=== PATIENT | male | born 1960 | race Caucasian/White ===

== ENCOUNTER 2016-10-21 19:26 | Emergency (ER) | payer BC, OTHER ==
[2016-10-21 20:04] VITALS: BP 126/66
[2016-10-21] MEDS ORDERED: guaiFENesin/CODIEN 100MG-10MG* 5 ML UDC PO ONE (21:09)
[2016-10-21] MEDS ORDERED: Albuterol 2.5 MG/3 ML NEB.SOL* (0.083%) INH ONE (21:12)
[2016-10-21] MEDS ORDERED: guaiFENesin/CODIEN 100MG-10MG* 5 ML UDC ONE (21:28)
--- NOTE | 2016-10-21 22:31 | UC ---
FLU HPI - HPI Summary HPI Summary: 3 DAYS AYALA, FEVER, COUGH ST. GETTING WORSE. COUGH PRODUCTIVE OF YELLOW SPUTUM, PAINFUL AND INTERFERRING WITH SLEEP. AYALA 5/10. NO PHOTOPHOBIA, CONFUSION, NECK STIFFNESS, VOMITING. POS DECREASED APPETITE. - History of Current Complaint Chief Complaint: UCGeneralIllness Stated Complaint: FEVER,HEADACHE,COUGH Time Seen by Provider: 10/21/16 20:18 Hx Obtained From: Patient, Family/President [place] Onset/Duration: Sudden Onset, Lasting Days - 3, Still Present, Worse Since - TODAY Severity Currently: Moderate Severity Initially: Moderate Pain Intensity: 5 Pain Scale Used: 0-10 Numeric Associated Signs & Symptoms: Positive: Fever, T Max - 102, F/C, Myalgia, Cough, Sore Throat, Headache. Negative: Nasal Congestion, Vomiting, Diarrhea Related Hx: Possible Flu/Infectious Exposure - Risk Factors Influenza Risk Factors: Negative - Allergy/Home Medications Allergies/Adverse Reactions: Allergies Allergy/AdvReac Type Severity Reaction Status Date / Time No Known Allergies Allergy Verified 10/21/16 20:04 PMH/Surg Hx/FS Hx/Imm Hx Previously Healthy: Yes Endocrine History Of: Denies: Diabetes Cardiovascular History Of: Denies: Cardiac Disorders, Hypertension, Pacemaker/ICD Respiratory History Of: Denies: Asthma - Surgical History Surgical History: None - Family History Known Family History: Negative: Cardiac Disease, Hypertension, Diabetes - Social History Occupation: Employed Full-time Lives: With Family Alcohol Use: Rare Substance Use Type: None Smoking Status (MU): Former Smoker Length of Time of Smoking/Using Tobacco: 15 YRS Have You Smoked in the Last Year: No When Did the Patient Quit Smoking/Using Tobacco: 2000 - Immunization History Most Recent Influenza Vaccination: [id number] Most Recent Tetanus Shot: 03/17/2012 Review of Systems Constitutional: Fever, Chills Skin: Negative Eyes: Negative ENT: Sore Throat, Nasal Discharge Respiratory: Cough Cardiovascular: Chest Pain - PLEURITIC Gastrointestinal: Negative Genitourinary: Negative Motor: Negative Neurovascular: Negative Musculoskeletal: Myalgia Neurological: Headache Psychological: Negative All Other Systems Reviewed And Are Negative: Yes Physical Exam Triage Information Reviewed: Yes Appearance: Well-Appearing, No Pain Distress, Obese Vital Signs: Initial Vital Signs Temp 100.5 F 10/21/16 20:00 Pulse 92 10/21/16 20:00 Resp 16 10/21/16 20:00 BP 126/66 10/21/16 20:00 Pulse Ox 97 10/21/16 20:00 Vital Signs Reviewed: Yes Eyes: Positive: Conjunctiva Clear. Negative: Discharge ENT: Positive: Hearing grossly normal, Pharyngeal erythema, Nasal drainage, TMs normal. Negative: Nasal congestion, Tonsillar swelling, Tonsillar exudate, Trismus, Muffled/hoarse voice Dental Exam: Normal Neck: Positive: Supple, Nontender, Enlarged Nodes @ Respiratory: Positive: Lungs clear, Normal breath sounds - SYMMETRIC, No respiratory distress, No accessory muscle use, Expiration - PROLONGED. Negative : Crackles, Rhonchi, Wheezing Cardiovascular: Positive: RRR, No Murmur Musculoskeletal Exam: Normal Musculoskeletal: Positive: Strength Intact Neurological: Positive: Alert, Muscle Tone Normal, Other: - STRENGTH SENATION REFLEXES INTACT BL. NO FOCAL DEFICITS Psychological: Positive: Age Appropriate Behavior Skin Exam: Normal Re-Evaluation - Re-Evaluation First Eval Change: Improved - S/P NEB PT ABLE TO TAKE DEEP BREATHES W/O COUGHING SPASM Flu Course/Dx - Differential Dx/Diagnosis Differential Diagnosis/HQI/PQRI: Bronchitis, Influenza, Pneumonia, Upper Respiratory Infection Provider Diagnoses: INLFUENZA, SORE THROAT, BRONCHOSPASM Discharge - Discharge Plan Condition: Stable Disposition: HOME Prescriptions: Albuterol HFA INHALER* [Ventolin HFA Inhaler*] 2 puff INH Q4H PRN #1 mdi PRN Reason: Sob/Wheezing Benzonatate CAP* [Tessalon CAP*] 100 mg PO TID #30 cap guaiFENesin/CODIEN 100MG-10MG* [Robitussin AC 100Mg-10Mg*] 5 - 10 ml PO BEDTIME PRN #100 udc MDD 10ml PRN Reason: Cough Patient Education Materials: Pharyngitis (ED), Influenza (ED), Bronchospasm (ED ) Forms: *Work Release Referrals: Gregory Oakes MD [Primary Care Provider] - (follow up in 5 days if not improving) Additional Instructions: INHALED BRONCHODILATORS: You have received a prescription for an inhaled bronchodilator -- a medication which stimulates the airways in the lung to dilate. This improves the flow of air in asthma, bronchitis, and emphysema. These medicines have some similarity to adrenaline, and can cause similar side effects: shakiness, racing heart, and a sense of nervousness. These side effects decrease with time. Contact your doctor if these side effects are severe. Do not over-use the medicine. Too-frequent use of the inhaler may make it ineffective. Call your doctor if the inhaler is not controlling your symptoms at the prescribed doses. COUGH-SUPPRESSANT & EXPECTORANT MEDICATION: You are to use a cough medication as needed for relief of symptoms. This medicine is a combination of an expectorant (to make the mucous thinner and more easily "coughed up") and a cough suppressant (to reduce the frequency of coughing). The cough-suppressant medicine is related to narcotics. You may experience mild nausea and sleepiness. Some patients who are very sensitive to narcotics may have stomach pain from this medicine. Taking the medicine with food reduces these side effects. Do not drive or work with machinery until you know how this medicine affects you. The expectorant should have no side effects. Iodine-containing expectorants (such as organidin) should not be taken by persons with active thyroid disease unless approved by your doctor. Call the doctor if you develop shortness of breath, hives, rash, itching, lightheadedness, or severe nausea and vomiting. EXPECTORANT MEDICATION:continue mucinex as directed An expectorant medicine has been prescribed. This type of drug makes mucous thinner, helping the sinuses, nose, and bronchial tubes to remain free of pus and mucous. Expectorants make a cough less severe and more comfortable, and help infected sinuses drain. In general, antihistamines defeat the purpose of the expectorant by making mucous thicker. They should be avoided unless specifically recommended by your physician. TESSALON PERLES: You have received a prescription for Tessalon Perles (benzonatate). This is a non-narcotic medicine for relief of cough. It usually works in about 15- 20 minutes and lasts around four hours. Tessalon Perles should be swallowed. They should not be chewed or dissolved in the mouth (this can produce temporary numbing of the mouth and choking can occur). If you develop any adverse effects such as wheezing, shortness of breath, hives, rash, itching, or lightheadedness, please return at once.
== END 2016-10-21 21:41 | disposition home or self-care (01) ==
LOC: UCCORT 19:26
DX: J11.1 Influenza due to unidentified influenza virus with other respiratory manifestations (principal); J98.01 Acute bronchospasm; Z87.891 Personal history of nicotine dependence
CPT/HCPCS: 87651; 99212; A9270-GY; G0463

== ENCOUNTER 2018-10-15 09:44 | Emergency (ER) | payer BC, OTHER ==
[2018-10-15 10:17] VITALS: BP 125/64
--- NOTE | 2018-10-15 11:48 | UC ---
Throat Pain/Nasal Ja HPI - HPI Summary HPI Summary: Patient presents to urgent care stating for the last 2-3 weeks he's been having intermittent episodes of chest pressure, shortness of breath with discomfort patient denies fevers or chills. Patient denies headache or vision changes. Patient states he feels short of breath and slightly nauseous during these episodes. Patient states he takes himself deep breathing and he seemed to resolve. Patient states these episodes last approximately 10 minutes. Patient states her last episode was yesterday lasted 5 minutes. Patient states he has not had a fever or chills. Patient states he's had pneumonia in the past and was thought maybe that was it. Patient denies any trauma. Patient does not have high blood pressure, high cholesterol, diabetes. Patient does not smoke. Patient's mother has a pacemaker and cardiac disease. Patient states he had negative stress test 4-5 years ago. Pt's medications reviewed this visit - History of Current Complaint Chief Complaint: UCEar Stated Complaint: SORE THROAT, EAR CONCERN Time Seen by Provider: 10/15/18 11:44 Hx Obtained From: Patient Onset/Duration: Gradual Onset Severity: Moderate Pain Intensity: 2 - ear pain left Pain Scale Used: 0-10 Numeric - Allergies/Home Medications Allergies/Adverse Reactions: Allergies Allergy/AdvReac Type Severity Reaction Status Date / Time No Known Allergies Allergy Verified 10/15/18 10:14 Home Medications: Home Medications Acetaminophen [Acetaminophen Extra Strength] 1,000 mg PO Q6H PRN 10/15/18 [ History Confirmed 10/15/18] PMH/Surg Hx/FS Hx/Imm Hx Previously Healthy: Yes - Surgical History Surgical History: Yes Surgery Procedure, Year, and Place: right rotator cuff repair - Family History Known Family History: Positive: Cardiac Disease - mom with CAD, pacemaker Negative: Hypertension, Diabetes - Social History Occupation: Employed Full-time Lives: With Family Alcohol Use: Occasionally Substance Use Type: None Smoking Status (MU): Former Smoker Length of Time of Smoking/Using Tobacco: 15 YRS Have You Smoked in the Last Year: No When Did the Patient Quit Smoking/Using Tobacco: 2000 - Immunization History Most Recent Influenza Vaccination: [id number] Most Recent Tetanus Shot: 03/17/2012 Review of Systems All Other Systems Reviewed And Are Negative: Yes Constitutional: Positive: Negative, Fever ENT: Positive: Ear Ache Is Patient Immunocompromised?: No Physical Exam - Summary Physical Exam Summary: Vital Signs Reviewed: Yes A+Ox3, no distress Eyes: Conjunctiva Clear, TORI. EOM intact and full ENT: Hearing grossly normal TM x 2 clear, no mastoid pain, no PND, no dental pain, mmoist, uvula midline, no exudate, no erythema Neck: Positive: Supple, no bruit Respiratory: Positive: No respiratory distress, No accessory muscle use + CTA throughout no w/r Cardiovascular: RRR nl s1, s2 no m/r CBT <2 sec no bruits abd soft + BS nt/nd no guarding, no distension Musculoskeletal Exam: EDUARDO x 4 without difficulty Strength Intact, ROM Intact Neurological: Positive: Alert, + sensation throughout Psychological: Positive: Normal Response To Family Skin: Positive: no rash, no ecchymosis Triage Information Reviewed: Yes Vital Signs: Initial Vital Signs Temp 97.6 F 10/15/18 10:13 Pulse 62 10/15/18 10:13 Resp 16 10/15/18 10:13 BP 125/64 10/15/18 10:13 Pulse Ox 99 10/15/18 10:13 Throat Pain/Nasal Course/Dx - Course Course Of Treatment: Patient presents to urgent care reporting episodes of chest pressure with radiation to his back, jaw, and left ear. Patient states intermittently he does have some left ear pain as well. Patient states when he has a symptoms he feels a little short of breath. Patient states with rest and deep slow breaths improves. Pt without fever or cough. No sick contact. on exam , no focal finiding. I had long conversation with pt regarding concern for cardiac origin given sx. pt in agreement to go to ED. EKG here reviewed. pt give ASA. report to Nohemi Koch NP in [facility] - pt preference. Pt given note for work today - scheduled at 3pm. pt states understanding and agreement with plan - Differential Dx/Diagnosis Provider Diagnosis: Chest pain Discharge - Sign-Out/Discharge Documenting (check all that apply): Patient Departure All imaging exams completed and their final reports reviewed: No Studies - Discharge Plan Condition: Stable Disposition: HOME-RECOMMEND TO ED Patient Education Materials: Chest Pain (ED) Forms: *Work Release Referrals: Gregory Oakes MD [Primary Care Provider] - Additional Instructions: The doctor that evaluated you today thinks that you need additional testing that can be completed the emergency department. It is recommended that you go directly to emergency department for further evaluation. This evaluation may include blood work or imaging. This testing will be directed and decided by the provider that evaluate you at the emergency department. If pain becomes worse, you feel lightheaded, you have uncontrolled vomiting, or you have any other concerns while you are being driven to emergency department as recommended to pullover and contact 911. - Billing Disposition and Condition Condition: STABLE Disposition: Home-Recommend to ED
[2018-10-15] MEDS ORDERED: Aspirin 81 mg CHEW TAB* 81 MG TAB.CHEW ONE (12:11)
[2018-10-16] MEDS ORDERED: Aspirin 81 mg CHEW TAB* 81 MG TAB.CHEW PO ONE (12:09)
== END 2018-10-15 12:17 | disposition home health service (06) ==
LOC: UCCORT 09:44
DX: R07.89 Other chest pain (principal); Z87.891 Personal history of nicotine dependence
CPT/HCPCS: 93005; 99212; A9270-GY; G0463